=== PATIENT | male | born 1985 | race Caucasian/White ===

== ENCOUNTER 2017-10-04 00:42 | Emergency (ER) | payer BC ==
--- NOTE | 2017-10-04 01:00 | ED ---
Nausea/Vomiting/Diarrhea HPI - General Chief complaint: Nausea/Vomiting/Diarrhea Stated complaint: abd pain,vomiting Time Seen by Provider: 10/04/17 00:58 Source: patient Mode of arrival: ambulatory Limitations: no limitations - History of Present Illness Initial comments: Patient is a healthy obese 32-year-old male presents the ER for evaluation of nausea and vomiting. Patient reports that he has had 3 episodes of vomiting is evening and noted that in the first and second episode of vomiting there was scant amount of bright red blood. Patient took photographs of the vomitus to provide information for the ER physician. Patient reports that he had been in his usual state of health throughout the day. 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 He then slept throughout the day and got up and went to work. While at work he developed nausea and had a single episode of vomiting which had a scant amount of bright red blood. He then decided to return home so his accompany him to the emergency department. At home the patient had 2 more episodes of vomiting he did note some blood in the second episode but not the third. He reports mild abdominal discomfort, no diarrhea or constipation. Patient reports that he's never been formally diagnosed with acid reflux but does have some stomach upset at times especially after eating. He does admit to having very poor eating habits and states that he usually doesn't eat throughout the entire day and that has a very large meal upon returning home. Patient states that usually by the time he eats he so hungry that he eats until he nearly makes himself sick and occasionally does make himself sick from eating too much. Has no GI history, he has never had an endoscopy, never been evaluated by GI I physician for any reason. He has no known personal or family history of inflammatory or irritable bowel, Crohn's or also of colitis. He has no known clotting disorders. He's on no anticoagulant or antiplatelet medications. He denies taking Motrin or aspirin recently. Not on any home medications. He denies alcohol abuse. He denies any known liver disease or family history of liver disease. - Related Data Previous Rx's Medication Instructions Recorded Ibuprofen [Motrin] 600 mg PO Q6HR PRN #20 tab 11/01/14 Orphenadrine [Norflex] 100 mg PO Q12H #10 tablet.er 11/01/14 Ondansetron Odt [Zofran Odt] 4 mg PO Q8HR PRN #12 tab 10/04/17 Pantoprazole [Protonix] 40 mg PO DAILY #30 tablet. 10/04/17 Sucralfate [Carafate] 1 gm PO ACHS #1 bottle 10/04/17 Allergies Allergy/AdvReac Type Severity Reaction Status Date / Time cats Allergy Unknown Uncoded 11/01/14 18:08 Review of Systems ROS Statement: Those systems with pertinent positive or pertinent negative responses have been documented in the HPI. ROS Other: All systems not noted in ROS Statement are negative. Past Medical History Past Medical History: Asthma History of Any Multi-Drug Resistant Organisms: None Reported Past Surgical History: No Surgical Hx Reported Past Psychological History: Anxiety, Panic Disorder Smoking Status: Current every day smoker Past Alcohol Use History: Occasional Past Drug Use History: None Reported General Exam Limitations: no limitations General appearance: alert, in no apparent distress Head exam: Present: atraumatic, normocephalic Eye exam: Present: PERRL ENT exam: Present: normal exam, normal oropharynx, mucous membranes moist Neck exam: Present: normal inspection Respiratory exam: Present: normal lung sounds bilaterally. Absent: respiratory distress, wheezes Cardiovascular Exam: Present: regular rate, normal rhythm GI/Abdominal exam: Present: soft, normal bowel sounds. Absent: distended, tenderness, guarding, rebound, rigid, diminished bowel sounds, hyperactive bowel sounds, hypoactive bowel sounds, organomegaly, mass, bruit, pulsatile mass , hernia Rectal exam: Present: deferred Extremities exam: Present: normal inspection Neurological exam: Present: alert, oriented X3 Psychiatric exam: Present: normal affect, normal mood Skin exam: Present: warm, dry, intact. Absent: petechiae, pallor, mottled Course Vital Signs 10/04/17 10/04/17 00:44 03:07 Temperature 97.8 F 97.1 F L Pulse Rate 64 53 L Respiratory 16 18 Rate Blood Pressure 124/86 110/56 O2 Sat by Pulse 99 98 Oximetry Medical Decision Making - Medical Decision Making The patient was seen and evaluated, patient is very well-appearing hemodynamically stable 32-year-old male with single episode of apparent emesis. Patient able provide a photograph which does show some bright red material in his vomitus, patient denies eating anything red prior to vomiting Patient no blood in the oral oronasopharynx Labs and imaging were ordered IV fluids and Pepcid were given Labs were unremarkable, x-rays with no acute abnormalities patient remained hemodynamically stable no further episodes of nausea or vomiting I discussed with the patient possibility of gastritis versus esophagitis versus possibility that the redness in his vomitus was secondary to something he ate. I advised him to start for tonics, Carafate, bland diet, multiple small meals throughout the day, avoid overeating overdistention of his stomach which has tended to make him sick in the past. Follow-up with her primary care physician by the end of the week and call GI for follow-up and possible endoscopy in the future. All questions pertaining to care were answered to the best of my ability patient was discharged home in stable condition prescriptions and referrals. Return parameters were discussed. Patient and at bedside were comfortable with plan for discharge home and outpatient follow-up. - Lab Data Result diagrams: 10/04/17 01:40 10/04/17 01:40 Lab Results 10/04/17 10/04/17 10/04/17 Range/Units 01:40 01:40 01:40 WBC 7.4 (3.8-10.6) k/uL RBC 5.24 (4.30-5.90) m/uL Hgb 15.5 (13.0-17.5) gm/dL Hct 45.9 (39.0-53.0) % MCV 87.5 (80.0-100.0) fL MCH 29.6 (25.0-35.0) pg MCHC 33.8 (31.0-37.0) g/dL RDW 12.5 (11.5-15.5) % Plt Count 246 (150-450) k/uL Neutrophils % 54 % Lymphocytes % 33 % Monocytes % 8 % Eosinophils % 3 % Basophils % 1 % Neutrophils # 4.0 (1.3-7.7) k/uL Lymphocytes # 2.4 (1.0-4.8) k/uL Monocytes # 0.6 (0-1.0) k/uL Eosinophils # 0.2 (0-0.7) k/uL Basophils # 0.0 (0-0.2) k/uL PT 10.2 (9.0-12.0) sec INR 1.0 (<1.2) APTT 23.5 (22.0-30.0) sec Sodium 138 (137-145) mmol/L Potassium 4.0 (3.5-5.1) mmol/L Chloride 107 (98-107) mmol/L Carbon Dioxide 24 (22-30) mmol/L Anion Gap 7 mmol/L BUN 21 H (9-20) mg/dL Creatinine 0.70 (0.66-1.25) mg/dL Est GFR (CKD-EPI)AfAm >90 (>60 ml/min/1.73 sqM) Est GFR (CKD-EPI)NonAf >90 (>60 ml/min/1.73 sqM) Glucose 98 (74-99) mg/dL Calcium 9.4 (8.4-10.2) mg/dL Total Bilirubin 0.5 (0.2-1.3) mg/dL AST 26 (17-59) U/L ALT 37 (21-72) U/L Alkaline Phosphatase 56 (38-126) U/L Total Protein 6.5 (6.3-8.2) g/dL Albumin 4.0 (3.5-5.0) g/dL Disposition Clinical Impression: Nausea and vomiting Disposition: HOME SELF-CARE Condition: Good Instructions: Acute Nausea and Vomiting (ED) Prescriptions: Ondansetron Odt [Zofran Odt] 4 mg PO Q8HR PRN #12 tab PRN Reason: Nausea Pantoprazole [Protonix] 40 mg PO DAILY #30 tablet. Sucralfate [Carafate] 1 gm PO ACHS #1 bottle Is patient prescribed a controlled substance at d/c from ED?: No Referrals: Heber Ruiz DO [Primary Care Provider] - 1-2 days Gaby Westbrook MD [STAFF PHYSICIAN] - 1-2 days Time of Disposition: 02:56
[2017-10-04] MEDS ORDERED: ONDANSETRON 4 MG/2 ML VIAL IVP STA (01:37)
[2017-10-04] MEDS ORDERED: SODIUM CHLORIDE 0.9% 1,000 ML IV ONE (01:37)
[2017-10-04] MEDS ORDERED: FAMOTIDINE 20 MG/2 ML VIAL IV STA (01:37)
[2017-10-04 02:00] LABS: Basophils % (A) 1 %; Eosinophils # (A) 0.2 k/uL (0-0.7); Eosinophils % (A) 3 %; HCT 45.9 % (39.0-53.0); HGB 15.5 gm/dL (13.0-17.5); Lymphocytes # (A) 2.4 k/uL (1.0-4.8); Lymphocytes % (A) 33 %; MCH 29.6 pg (25.0-35.0); MCHC 33.8 g/dL (31.0-37.0); MCV 87.5 fL (80.0-100.0); Mean Platelet Volume 8.5; Monocytes # (A) 0.6 k/uL (0-1.0); Monocytes % (A) 8 %; Neutrophils % (A) 54 %; Platelet Count 246 k/uL (150-450); RBC 5.24 m/uL (4.30-5.90); RDW 12.5 % (11.5-15.5); WBC 7.4 k/uL (3.8-10.6)
[2017-10-04 02:10] LABS: Partial Thromboplastin Time 23.5 sec (22.0-30.0); Prothrombin Time 10.2 sec (9.0-12.0)
[2017-10-04 02:17] LABS: ALT 37 U/L (21-72); AST 26 U/L (17-59); Alkaline Phosphatase 56 U/L (38-126); Anion Gap 7 mmol/L; Blood Urea Nitrogen 21 mg/dL (9-20); Calcium 9.4 mg/dL (8.4-10.2); Carbon Dioxide 24 mmol/L (22-30); Chloride 107 mmol/L (98-107); Glucose 98 mg/dL (74-99); Sodium 138 mmol/L (137-145); Total Bilirubin 0.5 mg/dL (0.2-1.3); Total Protein 6.5 g/dL (6.3-8.2)
--- NOTE | 2017-10-04 02:37 | XR ---
EXAMINATION TYPE: XR abdomen acute w cxr DATE OF EXAM: 10/04/2017 COMPARISON: Chest x-ray 09/21/2015. HISTORY: Nausea and vomiting TECHNIQUE: 4 views with chest x-ray and supine and upright abdomen FINDINGS: Heart and mediastinum are normal. Lungs are clear. Diaphragm is normal. Bony thorax appears normal. B owel gas pattern is normal. There is no sign of intestinal obstruction or pneumoperitoneum. Fecal pat tern is normal. There are no pathologic calcifications over the kidneys. IMPRESSION: Nonacute abdomen. Normal chest. There is clearing of small pleural effusions compared to chest x-ray of 09/21/2015.
[2017-10-04 03:08] VITALS: BP 110/56; PULSE 53; RESP 18; TEMP 97.1
== END 2017-10-04 03:09 | disposition home or self-care (01) ==
LOC: EC 00:42
DX: R11.2 Nausea with vomiting, unspecified (principal); R10.9 Unspecified abdominal pain; F17.200 Nicotine dependence, unspecified, uncomplicated; Z91.048 Other nonmedicinal substance allergy status
CPT/HCPCS: 36415; 80053; 85025; 85610; 85730; 74022; 99284; 96374; 96375; 96361; J2405

== ENCOUNTER 2018-09-05 17:38 | Emergency (ER) | payer BC ==
[2018-09-05 17:44] VITALS: BP 121/78; PULSE 67; RESP 16; TEMP 98.3
[2018-09-05] MEDS ORDERED: LIDOCAINE 1% INJ 10MG/ML (20 ML MDV) SQ ONE (17:48)
[2018-09-05] MEDS ORDERED: DIPH,PERTUS(ACELL)TETVAC-LF 0.5 ML VIAL IM ONE (18:10)
--- NOTE | 2018-09-05 19:02 | ED ---
General Adult HPI - General Chief complaint: Wound/Laceration Stated complaint: finger lac Time Seen by Provider: 09/05/18 17:47 Source: patient Mode of arrival: ambulatory Limitations: no limitations - History of Present Illness Initial comments: Patient is a 33-year-old male presenting to emergency Department with chief complaint of a cut on his left middle finger. Patient reports one hour ago he was using a grinding wheel to cut metal when he lacerated the left third digit. Patient reports approximately 2 cm laceration with no active bleeding. Patient reports mild throbbing pain. Patient denies any numbness or tingling in reports full range of motion of the finger. Patient denies any foreign body at the site of injury. Patient is unaware of his tetanus status. - Related Data Home Medications Medication Instructions Recorded Confirmed No Known Home Medications 09/05/18 09/05/18 Allergies Allergy/AdvReac Type Severity Reaction Status Date / Time cats Allergy Unknown Uncoded 09/05/18 17:41 Review of Systems ROS Statement: Those systems with pertinent positive or pertinent negative responses have been documented in the HPI. ROS Other: All systems not noted in ROS Statement are negative. Past Medical History Past Medical History: Asthma History of Any Multi-Drug Resistant Organisms: None Reported Past Surgical History: No Surgical Hx Reported Past Psychological History: Anxiety, Panic Disorder Smoking Status: Current every day smoker Past Alcohol Use History: Occasional Past Drug Use History: None Reported General Exam - General Exam Comments Initial Comments: General: Well-developed well-nourished distress HEENT: Normocephalic/atraumatic, PERLL, pharynx erythema, swallowing well, EAC no erythema, no exudates, TM clear, no cervical lymph nodes Neck: Supple, nontender, trachea midline Chest/Lungs: Normal respirations, no signs of respiratory distress clear to auscultation bilaterally no wheezes, rales, rhonchi Cardiac: Regular rate and rhythm, normal S1-S2, no murmurs rubs or gallops Abdomen/GI: Soft nontender, bowel sounds equal or quadrant x4, no guarding, no rebound no CVA tenderness Musculoskeletal: Laceration to the left third digit approximately 2 cm, full range of motion, no foreign bodies noted, active bleeding, normal capillary refill in all fingers of left hand, +2 radial and ulnar pulses bilaterally Skin: Warmth, no rashes or lesions, no cyanosis or diaphoresis Neurologic: AAO x 3, CN 2-12 intact, Psychiatric: Mood and affect normal, judgment normal Limitations: no limitations Course Vital Signs 09/05/18 17:41 Temperature 98.3 F Pulse Rate 67 Respiratory 16 Rate Blood Pressure 121/78 O2 Sat by Pulse 99 Oximetry Procedures - Laceration Laceration #1 Consent Obtained: verbal consent Indication: laceration Site: hand Size (cm): 2 Description: linear Depth: simple, single layer Sedation/Analgesia: none Anesthetic Used: lidocaine 1% Anesthesia Technique: local infiltration Amount (mls): 5 Pre-repair: irrigated extensively Type of Sutures: nylon Size of Sutures: 4-0 Number of Sutures: 4 Technique: simple, interrupted Patient Tolerated Procedure: well Medical Decision Making - Medical Decision Making Patient is a 33-year-old male presenting to emergency department with a cut on his left middle finger. Laceration site was repaired and patient tolerated the procedure well. The laceration site was thoroughly irrigated and prepped for repair. Patient was given tetanus prophylaxis. Patient advised to return to emergency department in 10 day for suture removal s or sooner if symptoms worsen. Patient vised to follow proper wound care instructions. Strict return parameters were thoroughly discussed with patient was understanding and agreeable. Case discussed with physician. Disposition Clinical Impression: Laceration Disposition: HOME SELF-CARE Condition: Stable Instructions (If sedation given, give patient instructions): Care For Your Stitches (DC), Laceration (DC) Additional Instructions: Please return to emergency department in 10 days if he for suture removal or sooner if symptoms worsen. Please follow proper wound care instructions. Is patient prescribed a controlled substance at d/c from ED?: No Referrals: Heber Ruiz DO [Primary Care Provider] - 1-2 days Time of Disposition: 19:02
[2018-09-10] MEDS ORDERED: SODIUM CHLORIDE 0.9% IRRIG 1,000 ML BTL IRRIGATION ONE (20:14)
== END 2018-09-05 19:21 | disposition home or self-care (01) ==
LOC: EC 17:38
DX: S61.213A Laceration without foreign body of left middle finger without damage to nail, initial encounter (principal); Z23 Encounter for immunization; F17.200 Nicotine dependence, unspecified, uncomplicated; Z91.09 Other allergy status, other than to drugs and biological substances; W31.89XA Contact with other specified machinery, initial encounter
CPT/HCPCS: 90715; 99282; 12001; 90471; J2001

== ENCOUNTER 2019-11-29 13:56 | Emergency (ER) | payer BC, OTHER ==
[2019-11-29 14:10] VITALS: BP 133/79; PULSE 61; RESP 20; TEMP 98.6
--- NOTE | 2019-11-29 14:56 | ED ---
General Adult HPI - General Chief complaint: Chest Pain Stated complaint: left shoulder pain Time Seen by Provider: 11/29/19 14:12 Source: patient Mode of arrival: ambulatory Limitations: no limitations - History of Present Illness Initial comments: Patient is a 34-year-old male presenting to the emergency Department with complaints of left shoulder pain that is increasing for the last 2 days. 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 Patient states his discomfort started at work 2 days ago. Patient states the pain is mostly in his posterior left shoulder and does extend around to his left anterior shoulder and left chest area. He states the pain increases with arm movement and lifting. He denies any shortness of breath. He denies any history of heart disease. He denies any trauma or injuries to his chest. Eyes are recent travel. He denies any fever, chills, cough. He states he's had a small sniffle for the last few days. He denies being on any medications. He has no further complaints at this time. Upon arrival to the ER his vital signs are stable. - Related Data Previous Rx's Medication Instructions Recorded Cyclobenzaprine [Flexeril] 5 mg PO BID PRN #10 tablet 11/29/19 Allergies Allergy/AdvReac Type Severity Reaction Status Date / Time cats Allergy Unknown Uncoded 11/29/19 14:10 Review of Systems ROS Statement: Those systems with pertinent positive or pertinent negative responses have been documented in the HPI. ROS Other: All systems not noted in ROS Statement are negative. Past Medical History Past Medical History: Asthma History of Any Multi-Drug Resistant Organisms: None Reported Past Surgical History: No Surgical Hx Reported Past Psychological History: Anxiety, Panic Disorder Smoking Status: Never smoker Past Alcohol Use History: Rare Past Drug Use History: Marijuana General Exam - General Exam Comments Initial Comments: GENERAL: Patient is well-developed and well-nourished. Patient is nontoxic and in no acute distress. HEAD: Atraumatic, normocephalic. EYES: Pupils equal round and reactive to light, extraocular movements intact, sclera anicteric, conjunctiva are normal. Eyelids were unremarkable. ENT: TMs normal, nares patent, oropharynx clear without exudates. Moist mucous membranes. NECK: Normal range of motion, supple without lymphadenopathy or JVD. LUNGS: Unlabored respirations. Breath sounds clear to auscultation bilaterally and equal. No wheezes rales or rhonchi. HEART: Regular rate and rhythm without murmurs, rubs or gallops. Mild pain with palpation of the anterior chest, left sternum. ABDOMEN: Soft, nontender, normoactive bowel sounds. No guarding, no rebound. No masses appreciated. : Deferred MUSCULOSKELETAL: Patient does have full range of motion of his left shoulder although painful at the end range, strength is 5 out of 5. He does have some tenderness of the posterior musculature. He is neurovascular intact. No clubbing or cyanosis. NEUROLOGICAL: Patient is alert and oriented x 3. Motor and sensory are also intact. Cranial nerves II through XII grossly intact. Symmetrical smile. Normal speech, normal gait. PSYCH: Normal mood, normal affect. SKIN: Warm, Dry, normal turgor, no rashes or lesions noted. Limitations: no limitations Course Vital Signs 11/29/19 14:05 Temperature 98.6 F Pulse Rate 61 Respiratory 20 Rate Blood Pressure 133/79 O2 Sat by Pulse 98 Oximetry EKG Findings - EKG Comments: EKG Findings:: Sinus bradycardia otherwise normal ECG, no signs of acute ischemia. Ventricular rate 48, NE interval 138, QTC 412. Medical Decision Making - Medical Decision Making Patient is a 34-year-old male presenting with left shoulder pain with some radiation into the left anterior chest. His vital signs are stable. His EKG shows no signs of acute ischemia. Patient works in [employer] and does a lot of work with his arms in front of him. This started at work 2 days ago. Pain increases with movement. I do not believe this is ischemic in nature. This appears to be muscle skeletal nature. I recommended continuing with ibuprofen, heat to the area. I will give him a few days of a muscle relaxer. Patient is stable for discharge. He is in agreement with this plan of care. He can follow up with his PCP. Return parameters were discussed with the patient and he verbalized understanding. Case discussed with Dr. Tomlinson. Disposition Clinical Impression: Muscle strain of left shoulder region, Atypical chest pain, Costochondritis Disposition: HOME SELF-CARE Condition: Stable Instructions (If sedation given, give patient instructions): Costochondritis (ED) Additional Instructions: Please return to the Emergency Department if symptoms worsen or any other concerns. EKG was normal today. Recommend ibuprofen, heat to the area, gentle stretching. Limit weighted activities for 2-3 days. Follow-up with PCP if muscle pain continues. Prescriptions: Cyclobenzaprine [Flexeril] 5 mg PO BID PRN #10 tablet PRN Reason: Muscle Spasm Is patient prescribed a controlled substance at d/c from ED?: No Referrals: Heber Ruiz DO [Primary Care Provider] - 1-2 days
== END 2019-11-29 15:06 | disposition home or self-care (01) ==
LOC: EC 13:56
DX: S46.912A Strain of unspecified muscle, fascia and tendon at shoulder and upper arm level, left arm, initial encounter (principal); M94.0 Chondrocostal junction syndrome [Tietze]; Z91.09 Other allergy status, other than to drugs and biological substances; X58.XXXA Exposure to other specified factors, initial encounter
CPT/HCPCS: 93005; 99284

== ENCOUNTER → 2019-12-02 | Outpatient (CLI) | payer OTHER ==
--- NOTE | 2019-12-02 12:15 | XR ---
EXAMINATION TYPE: XR chest 2V DATE OF EXAM: 12/02/2019 COMPARISON: 09/21/2015 HISTORY: 34-year-old male S29.001A, shoulder pain, lifting injury. TECHNIQUE: Frontal and lateral views FINDINGS: The cardiomediastinal silhouette, aorta, and pulmonary vasculature are within normal limits. Lungs an d pleural spaces are clear. IMPRESSION: No acute cardiopulmonary process.
--- NOTE | 2019-12-02 12:16 | XR ---
EXAMINATION TYPE: XR shoulder complete LT DATE OF EXAM: 12/02/2019 Comparison: None Clinical History: 34 year-old male S29.001A pain chest wall Findings: AC joint appears congruent and intact. Subacromial space is preserved. No tendinous or bursal calcifi cations. No acute fracture, subluxation, or dislocation. Impression: No acute osseous abnormality seen.
== END | disposition home or self-care (01) ==
LOC: RADXRMAIN 11:52
PROVIDERS: ATTEND Emergency Medicine
DX: S29.001A Unspecified injury of muscle and tendon of front wall of thorax, initial encounter (principal)
CPT/HCPCS: 71046

== ENCOUNTER → 2019-12-09 | Outpatient (CLI) | payer OTHER ==
--- NOTE | 2019-12-09 08:26 | XR ---
EXAMINATION TYPE: XR ribs LT DATE OF EXAM: 12/09/2019 COMPARISON: Chest x-ray one week ago. HISTORY: Left sided pain. TECHNIQUE: A frontal and oblique images of the left-sided ribs are obtained. FINDINGS: No acute displaced left-sided rib fractures. Overlying soft tissue is unremarkable. No susp icious focal osseous lesion. Visualized left lung remains clear. IMPRESSION: As above. No significant change from prior.
== END | disposition home or self-care (01) ==
LOC: RADXRMAIN 07:23
PROVIDERS: ATTEND Emergency Medicine
DX: S29.001D Unspecified injury of muscle and tendon of front wall of thorax, subsequent encounter (principal)

== ENCOUNTER 2020-09-23 21:59 | Emergency (ER) | payer BC, OTHER ==
[2020-09-23 22:07] VITALS: BP 148/83; PULSE 78; RESP 18; TEMP 98.7
[2020-09-23] MEDS ORDERED: TOPICAL SKIN ADHESIVE 1 EACH AMP TOPICAL ONE (22:25)
--- NOTE | 2020-09-23 22:32 | ED ---
Head Injury HPI - General Chief complaint: Head Injury Stated complaint: Work related head injury Time Seen by Provider: 09/23/20 22:18 Source: patient Mode of arrival: ambulatory Limitations: no limitations - History of Present Illness Initial comments: Patient is a 35-year-old male presenting to the emergency Department with complaints of a injury to the top of his head. Patient states she was at work today when a plastic been full of water fell about 1-2 feet above him on to the top of his head. He has a lacerations top of his head. He did not lose consciousness, he states he felt a little dizzy for about 30 seconds afterwards. He does admit to mild headache, currently rates it a 5/10. He denies any blurry vision or double vision, no neck pain. Denies any chest pain or shortness of breath. He denies being on blood thinners. Bleeding is controlled with a bandage. His tetanus vaccine is up-to-date. He has no further complaints. - Related Data Previous Rx's Medication Instructions Recorded Cyclobenzaprine [Flexeril] 5 mg PO BID PRN #10 tablet 11/29/19 Allergies/Adverse reactions: Allergies Allergy/AdvReac Type Severity Reaction Status Date / Time cats Allergy Unknown Uncoded 09/23/20 22:07 Review of Systems ROS Statement: Those systems with pertinent positive or pertinent negative responses have been documented in the HPI. ROS Other: All systems not noted in ROS Statement are negative. Past Medical History Past Medical History: Asthma History of Any Multi-Drug Resistant Organisms: None Reported Past Surgical History: No Surgical Hx Reported Past Psychological History: Anxiety, Panic Disorder Smoking Status: Current every day smoker Past Alcohol Use History: Rare Past Drug Use History: Marijuana General Exam - General Exam Comments Initial Comments: GENERAL: Patient is well-developed and well-nourished. Patient is nontoxic and in no acute distress. HEAD: Atraumatic, normocephalic. No hematoma, 2 cm superficial laceration top of the scalp. EYES: Pupils equal round and reactive to light, extraocular movements intact, sclera anicteric, conjunctiva are normal. Eyelids were unremarkable. ENT: TMs normal, nares patent, oropharynx clear without exudates. Moist mucous membranes. NECK: Normal range of motion, supple without lymphadenopathy or JVD. No midline tenderness. LUNGS: Unlabored respirations. Breath sounds clear to auscultation bilaterally and equal. No wheezes rales or rhonchi. HEART: Regular rate and rhythm without murmurs, rubs or gallops. ABDOMEN: Soft, nontender, normoactive bowel sounds. No guarding, no rebound. No masses appreciated. MUSCULOSKELETAL: Normal extremities with adequate strength and normal range of motion, no pitting or edema. No clubbing or cyanosis. NEUROLOGICAL: Patient is alert and oriented x 3. Motor and sensory are also intact. Cranial nerves II through XII grossly intact. Symmetrical smile. Normal speech, normal gait. PSYCH: Normal mood, normal affect. SKIN: Warm, Dry, normal turgor, no rashes. Patient has a superficial 2 cm laceration top of his scalp, this is not gaping, is not deep, no active bleeding. Limitations: no limitations Course Vital Signs 09/23/20 22:02 Temperature 98.7 F Pulse Rate 78 Respiratory 18 Rate Blood Pressure 148/83 O2 Sat by Pulse 96 Oximetry Procedures - Laceration Laceration #1 Consent Obtained: verbal consent Site: scalp Size (cm): 2 Description: linear Depth: simple, single layer Patient Tolerated Procedure: well Additional Comments: Wound was cleaned, topical skin adhesive was applied as well as Steri-Strips. Medical Decision Making - Medical Decision Making Patient is a 35-year-old male here today with a 2 cm superficial lack to the top of his head after a bucket of water fell on him at work today. The bucket was about 1-2 feet above him. There is no loss consciousness, is not on blood thinners. He has a mild headache today. But no other acute findings on exam, no acute neuro deficits. He is up-to-date with his tetanus. Patient's wound was cleaned, closed with skin adhesive and Steri-Strips. Tolerated procedure well. He is stable for discharge. Return parameters were discussed with him and he verbalized understanding. Case discussed with Dr. Cid. Disposition Clinical Impression: Contusion of scalp, Laceration of scalp Disposition: HOME SELF-CARE Condition: Stable Instructions (If sedation given, give patient instructions): Skin Adhesive Care (ED) Additional Instructions: Please return to the Emergency Department if symptoms worsen or any other concerns. Keep area clean and dry as discussed. Apply ice to the head for any discomfort, Tylenol or Motrin for discomfort as well. Is patient prescribed a controlled substance at d/c from ED?: No Referrals: Heber Ruiz DO [Primary Care Provider] - 1-2 days
[2020-09-23] MEDS ORDERED: IBUPROFEN 600 MG TAB PO STA (22:43)
== END 2020-09-23 23:00 | disposition home or self-care (01) ==
LOC: EC 21:59
DX: S01.01XA Laceration without foreign body of scalp, initial encounter (principal); J45.909 Unspecified asthma, uncomplicated; F41.9 Anxiety disorder, unspecified; F17.200 Nicotine dependence, unspecified, uncomplicated; F12.90 Cannabis use, unspecified, uncomplicated; W20.8XXA Other cause of strike by thrown, projected or falling object, initial encounter
CPT/HCPCS: 99283

== ENCOUNTER → 2020-09-27 | Outpatient (CLI) | payer OTHER ==
--- NOTE | 2020-09-27 16:07 | CT ---
EXAMINATION TYPE: CT brain kelli deleon DATE OF EXAM: 09/27/2020 COMPARISON: 07/07/2011 HISTORY: heavy object fell hitting top of head CT DLP: [address] Brain: Unenhanced CT of the brain was performed. The ventricles, basal cisterns and sulci overlying the cerebral convexities demonstrate a normal appe arance. There is no evidence for intracranial hemorrhage or sulcal effacement. No mass effects are seen. If symptoms persist consider MRI. Osseous calvarium is intact. IMPRESSION: No acute intracranial process CT Cervical Spine: Unenhanced CT of the cervical spine was performed with bone and soft tissue window settings submitted . Coronal and sagittal reconstruction is obtained. There is normal alignment and prevertebral soft tissues. I do not see evidence for fracture or sublu xation. No significant degenerative changes are present. The lung apices are clear. IMPRESSION: No evidence for acute fracture or subluxation of the cervical spine.
== END | disposition home or self-care (01) ==
LOC: RADCTMAIN 15:27
PROVIDERS: ATTEND Emergency Medicine
DX: Z04.3 Encounter for examination and observation following other accident (principal)
CPT/HCPCS: 70450; 72125

== ENCOUNTER 2022-03-06 17:33 | Emergency (ER) | payer OTHER, BC ==
--- NOTE | 2022-03-06 17:38 | ED ---
General Adult HPI <Michelle Patel - Last Filed: 03/06/22 17:37> - General Source: patient, RN notes reviewed Mode of arrival: ambulatory Limitations: no limitations <Feliciano Santillan - Last Filed: 03/06/22 19:43> <Carly Gan - Last Filed: 03/06/22 23:37> - General Chief complaint: Skin/Abscess/Foreign Body Stated complaint: [facility] - rash Time Seen by Provider: 03/06/22 17:35 - History of Present Illness Initial comments: 36-year-old male presents to the emergency department with a rash to Bilateral fingertips 1 week. Patient states that he believes he is having a reaction to his gloves. (Michelle Patel) Patient is a 36-year-old male presenting with chief complaint of reaction to the bilateral fingertips. Patient believes this is from his work, patient wears gloves at work. States that he applies a harsh chemical used to prevent rusting, does not know the primary chemical. Patient also admits to rash on the anterior aspect of the wrist. Patient has 2 swollen lymph nodes to the right arm. Patient has had similar reaction in the past. The skin breakdown at the end of his fingertips got infected and the infection spread up his arm, this required an inpatient stay with IV antibiotics. Denies fever, chills, red streaking, chest pain, difficulty breathing, palpitations, weakness, numbness, tingling, joint pain or swelling (Carly Gan) - Related Data Previous Rx's Medication Instructions Recorded Cyclobenzaprine [Flexeril] 5 mg PO BID PRN #10 tablet 11/29/19 Cephalexin [Keflex] 500 mg PO Q6HR 10 Days #40 cap 03/06/22 SILVER sulfADIAZINE CREAM 1 applic TOPICAL BID #85 gram 03/06/22 [Silvadene Cream] Allergies Allergy/AdvReac Type Severity Reaction Status Date / Time cats Allergy Unknown Uncoded 03/06/22 18:15 Review of Systems ROS Other: All systems not noted in ROS Statement are negative. <Michelle Patel - Last Filed: 03/06/22 17:37> ROS Other: All systems not noted in ROS Statement are negative. <Feliciano Santillan - Last Filed: 03/06/22 19:43> ROS Other: All systems not noted in ROS Statement are negative. <Carly Gan - Last Filed: 03/06/22 23:37> ROS Statement: Those systems with pertinent positive or pertinent negative responses have been documented in the HPI. Past Medical History Past Medical History: Asthma History of Any Multi-Drug Resistant Organisms: None Reported Past Surgical History: No Surgical Hx Reported Past Psychological History: Anxiety, Panic Disorder Smoking Status: Current every day smoker Past Alcohol Use History: Rare Past Drug Use History: Marijuana <Michelle Patel - Last Filed: 03/06/22 17:37> General Exam Limitations: no limitations General appearance: alert, in no apparent distress Head exam: Present: atraumatic, normocephalic, normal inspection Eye exam: Present: normal appearance Neck exam: Present: normal inspection, full ROM Neurological exam: Present: alert, oriented X3, CN II-XII intact Psychiatric exam: Present: normal affect, normal mood Skin exam: Present: other (Skin peeling noted at the end of several fingertips bilaterally. Peeling rash also noted on the dorsal surface of the wrist.) <Carly Gan - Last Filed: 03/06/22 23:37> Course Vital Signs 03/06/22 18:13 Temperature 98.7 F Pulse Rate 62 Respiratory 20 Rate Blood Pressure 127/84 O2 Sat by Pulse 99 Oximetry Medical Decision Making <Carly Gan - Last Filed: 03/06/22 23:37> - Medical Decision Making Was pt. sent in by a medical professional or institution (, PA, JUNIOR NET DEVELOPER, urgent care, hospital, or long-term...) When possible be specific @ -[No] Did you speak to anyone other than the patient for history (EMS, parent, family, police, friend...)? What history was obtained from this source @ -[No] Did you review nursing and triage notes (agree or disagree)? Why? @ -[I reviewed and agree with nursing and triage notes] Were old charts reviewed (outside hosp., previous admission, EMS record, old EKG, old radiological studies, urgent care reports/EKG's, long-term records)? Report findings @ -Records from patient's previous hospital stay at outside facility are revi ewed Differential Diagnosis (chest pain, altered mental status, abdominal pain women, abdominal pain men, vaginal bleeding, weakness, fever, dyspnea, syncope, headache, dizziness, GI bleed, back pain, seizure, CVA, palpatations, mental health)? @ -Differential includes burn, cellulitis, ALLERGIC reaction, this is not an all inclusive list EKG interpreted by me (3pts min.). @ -[As above] X-rays interpreted by me (1pt min.). @ -[None done] CT interpreted by me (1pt min.). @ -[None done] U/S interpreted by me (1pt. min.). @ -[None done] What testing was considered but not performed or refused? (CT, X-rays, U/S, labs)? Why? @ -[None] What meds were considered but not given or refused? Why? @ -[None] Did you discuss the management of the patient with other professionals (professionals i.e. , PA, JUNIOR NET DEVELOPER, lab, RT, psych nurse, hospice social worker, salesperson women's dresses, teacher, department of natural resources officer, case investigator)? Give summary @ -[No] Was smoking cessation discussed for >3mins.? @ -[No] Was critical care preformed (if so, how long)? @ -[No] Were there social determinants of health that impacted care today? How? (Homelessness, low income, unemployed, alcoholism, drug addiction, transportation, low edu. Level, literacy, decrease access to med. care, senior living, rehab)? @ -[No] Was there de-escalation of care discussed even if they declined (Discuss DNR or withdrawal of care, Hospice)? DNR status @ -[No] What co-morbidities impacted this encounter? (DM, HTN, Smoking, COPD, CAD, Cancer, CVA, ARF, Chemo, Hep., AIDS, mental health diagnosis, sleep apnea, morbid obesity)? @ -Smoking Was patient admitted / discharged? Hospital course, mention meds given and route, prescriptions, significant lab abnormalities, going to OR and other pertinent info. @ -Patient is a 36-year-old male presenting with chief complaint of skin peeling to the distal ends of the digits bilaterally that been going on for over a week. Patient has had similar symptoms in the past which progressed to severe infection. On physical examination skin breakdown and peeling. The fingertips is noted bilaterally, there is also a peeling rash to the wrist. There are 2 enlarged lymph nodes to the right under arm. I reviewed the records from patient's previous hospital stay at outside facility. Does not appear to be actively cellulitic at this time, patient will be placed on Keflex for prophylaxis. Patient also be placed on Silvadene for prophylaxis, as seems he responded well to this with his previous flareup according to his records. Educated patient on signs of cellulitis and when to report back to the ER. Follow-up with PCP. Report back to ER with any new or worsening symptoms. Discussed return parameters and answered all questions. Patient conveyed verbal understanding and agreed to the plan. I discussed this case in detail with my attending Dr. Ordonez Undiagnosed new problem with uncertain prognosis? @ -[No] Drug Therapy requiring intensive monitoring for toxicity (Heparin, Nitro, Insulin, Cardizem)? @ -[No] Were any procedures done? @ -[No] Diagnosis/symptom? @ -contact dermatitis Acute, or Chronic, or Acute on Chronic? @ -acute Uncomplicated (without systemic symptoms) or Complicated (systemic symptoms)? @ -uncomplicated Side effects of treatment? @ -[No] Exacerbation, Progression, or Severe Exacerbation? @ -[No] Poses a threat to life or bodily function? How? (Chest pain, [place], [place], pneumonia, PE, COPD, DKA, ARF, appy, cholecystitis, CVA, Diverticulitis, Homicidal, Suicidal, threat to staff... and all critical care pts) @ -unlikely (Carly Gan) Disposition <Michelle Patel - Last Filed: 03/06/22 17:37> <Feliciano Santillan - Last Filed: 03/06/22 19:43> Is patient prescribed a controlled substance at d/c from ED?: No Time of Disposition: 22:20 <Carly Gan - Last Filed: 03/06/22 23:37> Clinical Impression: Contact dermatitis Disposition: HOME SELF-CARE Condition: Good Instructions (If sedation given, give patient instructions): Cellulitis (ED) Additional Instructions: Follow-up with PCP. Report back to ER with any new or worsening symptoms. Take medication as prescribed. Keep hands clean, dry, and away from chemicals at work. Prescriptions: Cephalexin [Keflex] 500 mg PO Q6HR 10 Days #40 cap SILVER sulfADIAZINE CREAM [Silvadene Cream] 1 applic TOPICAL BID #85 gram Referrals: Heber Ruiz DO [Primary Care Provider] - 1-2 days
[2022-03-06 18:15] VITALS: TEMP 98.7
[2022-03-06] MEDS ORDERED: CEPHALEXIN 500 MG CAP PO STA (22:20)
[2022-03-06 23:57] VITALS: BP 120/84; PULSE 65; RESP 16
== END 2022-03-06 22:43 | disposition home or self-care (01) ==
LOC: EC 17:33
DX: L25.9 Unspecified contact dermatitis, unspecified cause (principal); J45.909 Unspecified asthma, uncomplicated; F41.9 Anxiety disorder, unspecified; F17.200 Nicotine dependence, unspecified, uncomplicated; F12.90 Cannabis use, unspecified, uncomplicated; Z91.041 Radiographic dye allergy status
CPT/HCPCS: 99283

== ENCOUNTER → 2023-05-17 | Outpatient (CLI) | payer BC ==
--- NOTE | 2023-05-17 13:11 | XR ---
EXAMINATION TYPE: XR abdomen 1V DATE OF EXAM: 05/17/2023 COMPARISON: NONE HISTORY: Pain TECHNIQUE: Single supine KUB image of the abdomen is obtained FINDINGS: Small bowel demonstrates no evidence for dilatation or air fluid levels. Gas and fecal material is seen in non-distended colon. No convincing evidence for pneumoperitoneum. No unusual calcifications. The lung bases are clear. The osseous structures are intact. IMPRESSION: 1. Overall nonobstructive bowel gas pattern.
== END | disposition home or self-care (01) ==
LOC: RADXRMAIN 12:36
PROVIDERS: ATTEND Family Medicine
DX: R10.9 Unspecified abdominal pain (principal)
CPT/HCPCS: 74018